=== PATIENT | female | born 1940 | race Caucasian/White ===

== ENCOUNTER 2016-12-27 15:21 | Emergency (ER) | payer MEDICARE, OTHER ==
[2016-12-27] MEDS ORDERED: HYDROmorphone 2 MG/ML SDV IM ONE (17:20)
[2016-12-27] MEDS ORDERED: Ondansetron 4 MG Tab.DIS PO STA (17:20)
[2016-12-27] MEDS ORDERED: Metoclopramide 10 MG/2 ML SDV IVPUSH ONE (18:40)
[2016-12-27] MEDS ORDERED: Sodium Chloride 0.9% 1,000 ML IV SCH (18:45)
[2016-12-27] MEDS ORDERED: Ciprofloxacin in D5W 400 MG in Premix Bag 1 BAG IV ONE ×2 (19:01)
[2016-12-27 22:09] VITALS: BP 117/59
--- NOTE | 2016-12-29 16:37 | ER ---
DATE SEEN: 12/27/2016 TIME SEEN: The patient was seen at approximately 1545 hours. CHIEF COMPLAINT/HISTORY OF PRESENT ILLNESS: Left flank pain, onset yesterday afternoon at approximately 12 noon. She was in the ED and had a sudden onset. Denies recent ingestion of excessive alcohol - she does not drink ETOH, she has not been dehydrated, no excessive exertion, or previous history of kidney stones, fever, nausea, vomiting, blood in the urine, or renal or pelvic surgery. MEDICATIONS: 1. Calcium 600 mg daily. 2. Aspirin 81 mg. 3. Atorvastatin 80 mg. 4. Olmesartan and hydrochlorothiazide 40/25. 5. Carvedilol b.i.d. ALLERGIES: To amoxicillin, ibuprofen, and sulfa. PHYSICAL EXAMINATION: GENERAL: The patient is attended by 2 daughters. She has marked pain. She has difficulty moving. She does not want to get up and lie down or move or lie on her back on the table because she has so much cramping and discomfort in the left flank. HEENT: Without abnormality. Pupils equal, round, and reactive to light. Pharynx with no dehydration. No dryness of mouth. NECK: Supple. No thyromegaly. No masses in neck. No cervical adenopathy. No bruits. LUNGS: Clear to auscultation without rales, rhonchi, or wheezes. HEART: S1, S2. No murmur. No irregular rate or rhythm. ABDOMEN: She has moderate left flank pain with percussion. Mild left upper quadrant and left lower quadrant groin discomfort. Bowel sounds are present. No rushes. No hernia demonstrated. DIAGNOSTIC DATA: CT of the abdomen does not reveal stones, but there is some mild perinephric stranding, suggesting either inflammation that is chronic or inflammation that is secondary to a recent stone passage. LABORATORY FINDINGS: White count 13,000 - slightly elevated, PMNs 81, lymphs 9, and monos 9. Complete metabolic panel: Sodium is 134, potassium 4.1, chloride 98, BUN 30, GFR 48, BUN and creatinine ratio 27 (dehydrated), and glucose 136 (stress glucose). Total protein slightly elevated at 8.2, albumin is normal at 4.6. Urinalysis: Moderate bacteria, negative leukocyte esterase, few mucus, small bilirubin, moderate occult blood. ASSESSMENT: 1. Perinephric stranding, suggesting possible pyelonephritis. I am more inclined to think the etiology is pyelonephritis as opposed to chronic kidney inflammation. 2. Overweight. 3. Dyslipidemia. 4. Hypertension, treated. 5. Mild leukocytosis. 6. Mild hyponatremia and hypochloremia secondary to hydrochlorothiazide in the losartan and hydrochlorothiazide combination pill. GFR considered 48, BUN and creatinine ratio 27, suggesting dehydration. PLAN: Start Cipro 500 mg b.i.d. Follow up with the doctor in a week or earlier if worse. I did not give her Flomax because no stones were visualized. It is remote, but very possible she could have passed the stone. /[id number] [id number] DAWN/VIK
== END 2016-12-27 22:08 | disposition home or self-care (01) ==
LOC: FB.ED 15:21
DX: N28.89 Other specified disorders of kidney and ureter (principal); E78.5 Hyperlipidemia, unspecified; I10 Essential (primary) hypertension; D72.829 Elevated white blood cell count, unspecified; E87.1 Hypo-osmolality and hyponatremia; E87.8 Other disorders of electrolyte and fluid balance, not elsewhere classified; Z79.82 Long term (current) use of aspirin; Z88.1 Allergy status to other antibiotic agents; Z88.6 Allergy status to analgesic agent; Z88.2 Allergy status to sulfonamides
CPT/HCPCS: 36415; 74176; 80053; 81001; 85025; 96365; 96375; 99283; 99284; A9270; J0744; J1170; J2765; J7040; 96372

== ENCOUNTER 2019-12-30 13:40 | Emergency (ER) | payer MEDICARE, OTHER ==
[2019-12-30] MEDS ORDERED: Sodium Chloride 0.9% 1,000 ML IV ONE (14:11)
[2019-12-30 14:25] VITALS: BP 105/58; PULSE 61
--- NOTE | 2019-12-30 14:47 | EDM.PDOC ---
ED HPI GENERAL MEDICAL PROBLEM - General Chief Complaint: Neuro Symptoms/Deficits Stated Complaint: WEAKNESS Time Seen by Provider: 12/30/19 13:40 Source of Information: Reports: Patient, Family History Limitations: Reports: No Limitations - History of Present Illness INITIAL COMMENTS - FREE TEXT/NARRATIVE: c/o near syncope pt has been on home O2 at at 2 l/min for hypopnea for 1y, her dtr drove her to see her [place] band tumbler, visit went well, no change in meds on drive back home, pt was front passenger and lay her seat back, told daughter she felt like she was going to pass out, no pain, dtr drove her 20 min here pt reports she felt better lying supine, alert, denied pain here, skin drive, no dyspnea, no cough had felt fine earlier in the day says she felt weak no sob, no f/c/d lives alone h/o Leiden Factor V with DVT 60y ago, on ASA, no other anticoagulation dtr has had b/l PEs, also on ASA and no other anticoagulation h/o stent x 2, CABG x 2 in 2000, then stents x 3, pacemaker 12/09 pt does not know whether she has had an GA in the past, dtr reports that she has never smoked, smokes echo 04/11 with 40-45% EF, mild diastolic dysfunction, mild global LV hypokinesis - Related Data Allergies Allergy/AdvReac Type Severity Reaction Status Date / Time amoxicillin Allergy Hives Verified 12/30/19 14:03 ibuprofen Allergy Hives Verified 12/30/19 14:03 Sulfa (Sulfonamide Allergy Hives Verified 12/30/19 14:03 Antibiotics) Home Meds: Home Meds Aspirin 81 mg PO DAILY 12/27/16 [History] Calcium Carbonate [Calcium] 600 mg PO DAILY 12/27/16 [History] Ciprofloxacin HCl [Cipro] 500 mg PO BID #28 tablet 12/27/16 [Rx] Olmesartan/Hydrochlorothiazide [Olmesartan-Hctz 40-25 mg Tab] 1 tab PO DAILY 12/27/16 [History] atorvaSTATin [Lipitor] 80 mg PO BEDTIME 12/27/16 [History] carvediloL [Carvedilol] 1 tab PO BID 12/27/16 [History] Past Medical History Cardiovascular History: Reports: Bypass, Heart Failure, High Cholesterol, Hypertension, GA, Pacemaker, Stents 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: Musculoskeletal History: Reports: Arthritis, Fracture Endocrine/Metabolic History: Reports: Obesity/BMI 30+ - Infectious Disease History Infectious Disease History: Reports: None - Past Surgical History Cardiovascular Surgical History: Reports: Coronary Artery Stent GI Surgical History: Reports: Cholecystectomy Social & Family History - Family History Family Medical History: Noncontributory - Tobacco Use Smoking Status *Q: Never Smoker - Caffeine Use Caffeine Use: Reports: None - Recreational Drug Use Recreational Drug Use: No ED ROS GENERAL - Review of Systems Review Of Systems: See Below Constitutional: Reports: No Symptoms HEENT: Reports: No Symptoms Respiratory: Reports: No Symptoms. Denies: Shortness of Breath, Cough Cardiovascular: Reports: No Symptoms. Denies: Chest Pain Endocrine: Reports: No Symptoms GI/Abdominal: Reports: No Symptoms : Reports: No Symptoms Musculoskeletal: Reports: No Symptoms Skin: Reports: No Symptoms Neurological: Reports: Dizziness, Weakness, Other (near syncope). Denies: Confusion, Headache, Numbness, Tingling, Trouble Speaking, Change in Speech Psychiatric: Reports: No Symptoms Hematologic/Lymphatic: Reports: No Symptoms Immunologic: Reports: No Symptoms - Physical Exam Exam: See Below Exam Limited By: No Limitations General Appearance: Alert, WD/WN, No Apparent Distress Eye Exam: Bilateral Eye: EOMI, PERRL Ears: Normal External Exam, Hearing Grossly Normal Nose: Normal Inspection, Normal Mucosa, No Blood Throat/Mouth: Normal Inspection, Normal Lips, Normal Voice, No Airway Compromise Head Exam: Atraumatic Neck: Normal Inspection, Supple, Non-Tender, Full Range of Motion Respiratory/Chest: No Respiratory Distress, Lungs Clear, Normal Breath Sounds, No Accessory Muscle Use, Chest Non-Tender Cardiovascular: Regular Rate, Rhythm, No Edema, No Murmur, Other (trace edema to knees b/l, symmetric, no swell, no cords, calves NT, no red, mild tender over R tibial plateau) GI/Abdominal: Soft, Non-Tender, No Distention Back Exam: Normal Inspection, Full Range of Motion, NT Extremities: Normal Inspection, Normal Range of Motion, Non-Tender, No Pedal Edema Psychiatric: Normal Affect, Normal Mood Skin Exam: Warm, Dry, Intact, Normal Color, No Rash Course - Vital Signs Last Recorded V/S: Last Vital Signs Temp 36.3 C 10/09/20 13:40 Pulse 61 12/30/19 13:40 Resp 14 12/30/19 13:40 BP 105/58 L 12/30/19 13:40 Pulse Ox 96 12/30/19 13:40 - Orders/Labs/Meds Orders: Active Orders 24 hr Category Date Time Status EKG Documentation Completion [RC] ASDIRECTED Care 12/30/19 14:10 Active Chest 1V Frontal [CR] Stat Exams 12/30/19 14:09 Ordered VL Duplex Lwr Ext Veins Ltd Rt [US] Stat Exams 12/30/19 14:06 Ordered CORONAVIRUS COVID-19 KADEN [MOLEC] Stat Lab 12/30/19 16:55 Ordered EKG 12 Lead [EK] Routine Ther 12/30/19 14:09 Ordered Labs: Laboratory Tests 12/30/19 12/30/19 12/30/19 Range/Units 14:00 14:00 14:00 WBC 6.5 (4.5-12.0) X10-3/uL RBC 4.14 (3.23-5.20) x10(6)uL Hgb 13.0 (11.5-15.5) g/dL Hct 38.2 (30.0-51.3) % MCV 92.2 (80-96) fL MCH 31.3 (27.7-33.6) pg MCHC 34.0 (32.2-35.4) g/dL RDW 12.4 (11.5-15.5) % Plt Count 189 (125-369) X10(3)uL MPV 7.4 (7.4-10.4) fL Neut % (Auto) 66.2 (46-82) % Lymph % (Auto) 24.7 (13-37) % [place] % (Auto) 7.0 (4-12) % Eos % (Auto) 2 (1.0-5.0) % Baso % (Auto) 1 (0-2) % Neut # (Auto) 4.3 (1.6-8.3) # Lymph # (Auto) 1.6 (0.6-5.0) # [place] # (Auto) 0.5 (0.0-1.3) # Eos # (Auto) 0.1 (0.0-0.8) # Baso # (Auto) 0.0 (0.0-0.2) # PT 10.6 (9.0-11.1) sec INR 0.98 L (1.00-1.24) APTT 21.0 L (24.4-33.2) SECONDS D-Dimer, Quantitative 1.03 H (0.0-0.59) mg/LFEU Sodium 139 (135-145) mmol/L Potassium 4.2 (3.5-5.3) mmol/L Chloride 102 (100-110) mmol/L Carbon Dioxide 26 (21-32) mmol/L BUN 31 H (7-18) mg/dL Creatinine 1.7 H (0.55-1.02) mg/dL Est Cr Clr Drug Dosing TNP Estimated GFR (MDRD) 29 L (>60) BUN/Creatinine Ratio 18.2 (9-20) Glucose 137 H (80-116) mg/dL Calcium 9.1 (8.6-10.2) mg/dL Total Bilirubin 0.6 (0.1-1.3) mg/dL AST 17 (5-25) IU/L ALT 21 (12-36) U/L Alkaline Phosphatase 77 (56-112) IU/L Troponin I (4.0-60.3) pg/mL C-Reactive Protein (0.5-0.9) mg/dL NT-Pro-B Natriuret Pep (<=450) pg/mL Total Protein 7.4 (6.0-8.0) g/dL Albumin 3.9 (3.2-4.6) g/dL Globulin 3.5 g/dL Albumin/Globulin Ratio 1.1 Urine Color (YELLOW) Urine Appearance (CLEAR) Urine pH (5.0-6.5) Ur Specific [place] (1.010-1.025) Urine Protein (NEGATIVE) mg/dL Urine Glucose (UA) (NORMAL) mg/dL Urine Ketones (NEGATIVE) mg/dL Urine Occult Blood (NEGATIVE) Urine Nitrite (NEGATIVE) Urine Bilirubin (NEGATIVE) Urine Urobilinogen (NEGATIVE) mg/dL Ur Leukocyte Esterase (NEGATIVE) Urine RBC (0-5) Urine WBC (0-5) Ur Squamous Epith Cells (NS,R,O) Urine Bacteria (NS) Urine Mucus (NS) 12/30/19 12/30/19 Range/Units 14:00 16:10 WBC (4.5-12.0) X10-3/uL RBC (3.23-5.20) x10(6)uL Hgb (11.5-15.5) g/dL Hct (30.0-51.3) % MCV (80-96) fL MCH (27.7-33.6) pg MCHC (32.2-35.4) g/dL RDW (11.5-15.5) % Plt Count (125-369) X10(3)uL MPV (7.4-10.4) fL Neut % (Auto) (46-82) % Lymph % (Auto) (13-37) % [place] % (Auto) (4-12) % Eos % (Auto) (1.0-5.0) % Baso % (Auto) (0-2) % Neut # (Auto) (1.6-8.3) # Lymph # (Auto) (0.6-5.0) # [place] # (Auto) (0.0-1.3) # Eos # (Auto) (0.0-0.8) # Baso # (Auto) (0.0-0.2) # PT (9.0-11.1) sec INR (1.00-1.24) APTT (24.4-33.2) SECONDS D-Dimer, Quantitative (0.0-0.59) mg/LFEU Sodium (135-145) mmol/L Potassium (3.5-5.3) mmol/L Chloride (100-110) mmol/L Carbon Dioxide (21-32) mmol/L BUN (7-18) mg/dL Creatinine (0.55-1.02) mg/dL Est Cr Clr Drug Dosing Estimated GFR (MDRD) (>60) BUN/Creatinine Ratio (9-20) Glucose (80-116) mg/dL Calcium (8.6-10.2) mg/dL Total Bilirubin (0.1-1.3) mg/dL AST (5-25) IU/L ALT (12-36) U/L Alkaline Phosphatase (56-112) IU/L Troponin I 8.9 (4.0-60.3) pg/mL C-Reactive Protein 0.5 (0.5-0.9) mg/dL NT-Pro-B Natriuret Pep 542 H (<=450) pg/mL Total Protein (6.0-8.0) g/dL Albumin (3.2-4.6) g/dL Globulin g/dL Albumin/Globulin Ratio Urine Color Yellow (YELLOW) Urine Appearance Slightly cloudy (CLEAR) Urine pH 5.0 (5.0-6.5) Ur Specific [place] 1.020 (1.010-1.025) Urine Protein Trace (NEGATIVE) mg/dL Urine Glucose (UA) Normal (NORMAL) mg/dL Urine Ketones Negative (NEGATIVE) mg/dL Urine Occult Blood Trace (NEGATIVE) Urine Nitrite Negative (NEGATIVE) Urine Bilirubin Negative (NEGATIVE) Urine Urobilinogen 1 H (NEGATIVE) mg/dL Ur Leukocyte Esterase Small H (NEGATIVE) Urine RBC 5-10 H (0-5) Urine WBC 0-5 (0-5) Ur Squamous Epith Cells Few H (NS,R,O) Urine Bacteria Few H (NS) Urine Mucus Few H (NS) Meds: Medications Discontinued Medications Generic Name Dose Route Start Last Admin Trade Name Freq PRN Reason Stop Dose Admin Sodium Chloride 1,000 mls @ 999 mls/hr 12/30/19 14:11 12/30/19 13:50 Normal Saline IV 12/30/19 15:11 999 mls/hr .BOLUS ONE Administration - Re-Assessments/Exams Free Text/Narrative Re-Assessment/Exam: 12/30/19 16:57 COVID ordered altho swab inadvertently not obtained, concern for COVID quite low in absence of sxs or exposure and labs that are neg for any infectious process u/s of RLE is neg for DVT as per prelim reading CxR also neg as per prelim ED reading u/a neg for infection trop x 1 neg and pt unlikely had CV event altho will need to be r/o'ed for GA suspect PE as most likely cause of near syncope given inc'd d-dimer (no comparison) and h/o DVT cannot do chest CTA d/t low GFR, would be candidate for v/q scan 12/30/19 17:31 d/w Dr Lamb from [facility] who accepted pt in transfer, he said that pt would go to the ED ambulance bay and then would bypass ED for a direct admit as he understood that there was an open bed available pt and dtr in agreement will give Lovenox pending further evaluation initial BP 105/58, now 135/80 Departure - Departure Time of Disposition: 17:36 Disposition: DC/Tfer to Acute Hospital 02 Clinical Impression: Near syncope, Elevated d-dimer, Chronic renal insufficiency, Elevated brain natriuretic peptide (BNP) level, Hypotension - Discharge Information *PRESCRIPTION DRUG MONITORING PROGRAM REVIEWED*: Not Applicable *COPY OF PRESCRIPTION DRUG MONITORING REPORT IN PATIENT SOILA: Not Applicable Referrals: Laverne Palacios NP [Primary Care Provider] - Forms: ED Department Discharge Sepsis Event Note (ED) - Evaluation Sepsis Screening Result: No Definite Risk - Focused Exam Vital Signs: Vital Signs Temp Pulse Resp BP Pulse Ox 12/30/19 13:40 36.3 C 61 14 105/58 L 96 - My Orders Last 24 Hours: My Active Orders 12/30/19 14:06 VL Duplex Lwr Ext Veins Ltd Rt [US] Stat 12/30/19 14:09 Chest 1V Frontal [CR] Stat EKG 12 Lead [EK] Routine 12/30/19 14:10 EKG Documentation Completion [RC] ASDIRECTED 12/30/19 16:55 CORONAVIRUS COVID-19 KADEN [MOLEC] Stat - Assessment/Plan Last 24 Hours: My Active Orders 12/30/19 14:06 VL Duplex Lwr Ext Veins Ltd Rt [US] Stat 12/30/19 14:09 Chest 1V Frontal [CR] Stat EKG 12 Lead [EK] Routine 12/30/19 14:10 EKG Documentation Completion [RC] ASDIRECTED 12/30/19 16:55 CORONAVIRUS COVID-19 KADEN [MOLEC] Stat
[2019-12-30] MEDS ORDERED: Enoxaparin 100 MG/1 ML Syringe SUBCUT ONE (17:35)
--- NOTE | 2020-01-02 10:13 | US ---
INDICATION: Near syncope, pain right tibia, history of Leiden factor V. DUPLEX ULTRASOUND RIGHT LOWER EXTREMITY VEINS: Utilizing 2-D real time, duplex Doppler spectral analysis and color flow imaging, examination of the lower extremity veins, including the common femoral vein, proximal greater saphenous vein, proximal deep femoral vein, proximal femoral vein, mid femoral vein, distal femoral vein, popliteal vein, posterior tibial vein, anterior tibial vein, (peroneal vein not demonstrated) revealed no evidence of deep venous thrombosis or obstruction. Compression views showed no abnormal lack of compression to suggest thrombosis. No evidence of incompetence of the valves was identified. IMPRESSION: Duplex ultrasound, lower extremity veins, shows no evidence of deep venous thrombosis or incompetence. MTDD
== END 2019-12-30 18:25 ==
LOC: FB.ED 13:40
DX: I95.9 Hypotension, unspecified (principal); I13.0 Hypertensive heart and chronic kidney disease with heart failure and stage 1 through stage 4 chronic kidney disease, or unspecified chronic kidney disease; I50.9 Heart failure, unspecified; N18.9 Chronic kidney disease, unspecified; R79.1 Abnormal coagulation profile; R79.89 Other specified abnormal findings of blood chemistry; E78.00 Pure hypercholesterolemia, unspecified; E66.9 Obesity, unspecified; I25.2 Old myocardial infarction; Z88.2 Allergy status to sulfonamides; Z88.1 Allergy status to other antibiotic agents; Z88.6 Allergy status to analgesic agent; Z79.82 Long term (current) use of aspirin; Z79.899 Other long term (current) drug therapy; Z95.5 Presence of coronary angioplasty implant and graft; Z90.49 Acquired absence of other specified parts of digestive tract
CPT/HCPCS: 36415; 71045; 80053; 81001; 83880; 84484; 85025; 85379; 85610; 85730; 86140; 93005; 93971; 96360; 96372; 99285; J1650; J7030